=== PATIENT | male | born 1990 | race Asian ===

== ENCOUNTER 2016-09-23 02:44 | Emergency (ER) | payer BC ==
[~2016-09-23] VITALS: Ht 175.3 cm; Wt 87.0 kg
[2016-09-23 08:14] VITALS: BP 108/63
== END 2016-09-23 09:07 | disposition home or self-care (01) ==
LOC: ED 09:03
DX: F10.120 Alcohol abuse with intoxication, uncomplicated (principal)
CPT/HCPCS: 99283